=== PATIENT | male | born 1975 | race Caucasian/White ===

== ENCOUNTER 2018-03-01 19:47 | Observation (INO) | payer BC ==
--- NOTE | 2018-03-01 19:55 | PDOC ---
Rapid Medical Evaluation Chief Complaint: Respiratory Time Seen by Provider: 03/01/18 19:52 Medical Evaluation: 03/01/18 19:54 I have performed a brief in person evaluation of this patient. This patient presents with a CC of: SOB Pt is a 42 Yo male who states that he has a sharp pain upon inspiration and his PCP told him to come to the ED because his D dimer was elevated. No hx of blood clots PE: Skin: Clear Lungs: Clear Heart: RRR Abd: No pain MS: Moves all extremities without difficulty. Neuro: Alert and oriented Psych: Appropriate affect I have ordered the following: Basic labs The patient will proceed to the ED for further evaluation. Discharge Disposition - Diagnosis Respiratory abnormalities - Referrals Referrals: Zafar John MD [Primary Care Provider] - - Patient Instructions - Post Discharge Activity
[2018-03-01 19:56] VITALS: BMI 34.8
--- NOTE | 2018-03-01 20:59 | PDOC ---
History of Present Illness <Pati Fischer - Last Filed: 03/02/18 00:11> - History of Present Illness Initial Comments: 03/01/18 21:11 The patient is a 42 year old male, with a significant past medical history of HLD, GERD, and hypokalemia, who presents to the emergency department with, 3 days of right upper quadrant and R lower chest pain with elevated d-dimer results. As per patient, for the past 3 days after eating a fatty meal he began to experience right upper quadrant pain (just below the right breast) radiating around to his back (not straight back). He endorses the pain to worsen when laying flat and with deep inspiration. Patient denies any alleviating factors. The patient went to urgent care today and his blood work done depicted an elevated d-dimer of 0.79 (normal range < 0.5). No recent travel or immobility. No hormone use. Pt reports sister from , unknown if provoked or not. He denies any recent fevers, chills, headache or dizziness. He denies any recent nausea, vomit, diarrhea or constipation. He denies any recent palpitations or shortness of breath. He denies any recent dysuria, frequency, urgency or hematuria. Allergies: NKDA Past surgical history: None reported. Social History: Smoker (10 cigarettes per day). Primary Care Physician: Dr. John <Kishan Call - Last Filed: 03/02/18 00:27> - General Chief Complaint: Respiratory Stated Complaint: BLOOD CLOT IN LUNGS Time Seen by Provider: 03/01/18 19:52 Past History <Pati Fischer - Last Filed: 03/02/18 00:11> - Past Medical History COPD: No GI Disorders: Yes (REFLUX) Hypercholesterolemia: Yes - Suicide/Smoking/Psychosocial Hx Smoking History: Current every day smoker Number of Cigarettes Smoked Daily: 10 Information on smoking cessation initiated: No <Kishan Call - Last Filed: 03/02/18 00:27> - Past Medical History Allergies/Adverse Reactions: Allergies Allergy/AdvReac Type Severity Reaction Status Date / Time No Known Allergies Allergy Verified 03/01/18 19:55 Review of Systems - Review of Systems Comments:: 03/01/18 21:12 GENERAL/CONSTITUTIONAL: No fever or chills. No weakness. HEAD, EYES, EARS, NOSE AND THROAT: No change in vision. No ear pain or discharge. No sore throat. GASTROINTESTINAL: RUQ pain. No nausea, vomiting, diarrhea or constipation. GENITOURINARY: No dysuria, frequency, or change in urination. CARDIOVASCULAR: Right sided chest pain. No shortness of breath. RESPIRATORY: No cough, wheezing, or hemoptysis. MUSCULOSKELETAL: No joint or muscle swelling or pain. No neck or back pain. SKIN: No rash NEUROLOGIC: No headache, vertigo, loss of consciousness, or change in strength/ sensation. ENDOCRINE: No increased thirst. No abnormal weight change. HEMATOLOGIC/LYMPHATIC: No anemia, easy bleeding, or history of blood clots. ALLERGIC/IMMUNOLOGIC: No hives or skin allergy. <Kishan Call - Last Filed: 03/02/18 00:27> *Physical Exam - Vital Signs Last Vital Signs Temp Pulse Resp BP Pulse Ox 106 H 18 150/98 98 03/01/18 19:51 03/01/18 19:51 03/01/18 19:51 03/01/18 19:51 <Pati Fischer - Last Filed: 03/02/18 00:11> - Vital Signs Last Vital Signs Temp Pulse Resp BP Pulse Ox 106 H 18 150/98 98 03/01/18 19:51 03/01/18 19:51 03/01/18 19:51 03/01/18 19:51 - Physical Exam Comments: 03/01/18 21:12 GENERAL: Awake, alert, and fully oriented, in no acute distress HEAD: No signs of trauma EYES: PERRLA, EOMI, sclera anicteric, conjunctiva clear ENT: Nares patent, oropharynx clear without exudates. Moist mucosa NECK: Normal ROM, supple LUNGS: Breath sounds equal, clear to auscultation bilaterally. No wheezes, and no crackles HEART: Tachycardic but regular. no murmurs, rubs or gallops ABDOMEN: Soft, +RUQ ttp, normoactive bowel sounds. No guarding, no rebound. No masses. No CVAT. EXTREMITIES: Normal range of motion, no edema. No erythema, or tenderness BACK: No midline spinal tenderness in cervical/thoracic/lumbar region NEUROLOGICAL: Normal speech, cranial nerves intact, negative pronator drift, 5/ 5 strength in all 4 extremities, normal sensation to light touch in all 4 extremities, normal cerebellar exam, normal gait SKIN: Warm, Dry, normal turgor, no rashes or lesions noted. <Kishan Call - Last Filed: 03/02/18 00:27> ED Treatment Course - LABORATORY CBC & Chemistry Diagram: 03/01/18 21:05 03/01/18 21:05 - ADDITIONAL ORDERS Additional order review: Laboratory Results 03/01/18 03/01/18 21:05 21:05 PT with INR 12.60 INR 1.07 PTT (Actin FS) 27.7 Sodium 141 Potassium 4.8 Chloride 107 Carbon Dioxide 25 Anion Gap 10 BUN 16 Creatinine 0.8 Creat Clearance w eGFR > 60 Random Glucose 109 H Calcium 8.8 Total Bilirubin 0.5 AST 47 H ALT 56 Alkaline Phosphatase 67 Troponin I < 0.02 B-Natriuretic Peptide 26.2 Total Protein 7.8 Albumin 3.8 Lipase 149 03/01/18 21:05 RBC 4.77 MCV 91.4 MCHC 34.9 RDW 13.7 MPV 8.1 Neutrophils % 62.2 Lymphocytes % 27.5 Monocytes % 7.8 Eosinophils % 1.7 Basophils % 0.8 - Medications Given in the ED: ED Medications Discontinued Medications Generic Name Dose Route Start Last Admin Trade Name Carl PRN Reason Stop Dose Admin Acetaminophen 1,000 mg 03/01/18 21:00 03/01/18 21:02 Ofirmev Injection - IVPB 03/01/18 21:01 1,000 mg ONCE ONE Administration <Pati Fischer - Last Filed: 03/02/18 00:11> - LABORATORY CBC & Chemistry Diagram: 03/01/18 21:05 03/01/18 21:05 - RADIOLOGY Radiology Studies Ordered: Category Date Time Status CHEST CTA [CT] Stat CT Scan 03/01/18 20:58 Ordered ABDOMEN US -LIMITED [US] Stat Ultrasound 03/01/18 20:58 Ordered <Kishan Call - Last Filed: 03/02/18 00:27> Medical Decision Making - Medical Decision Making 03/02/18 00:11 Person to notify (): [phone] <Pati Fischer - Last Filed: 03/02/18 00:11> - Medical Decision Making 03/01/18 21:03 42yo M hx HL, GERD presents to the ED with 3 days of progressive R lower chest/ RUQ pleuritic pain. Vitals with tachycardia to 107. Labs done at with elevated dimer. DDx includes PE vs cholecystitis. Less likely PNA vs ACS vs MSk pain vs pancreatitis. Plan -labs -XR -monitor -RUQ US -CTA chest -pain control -reassess 03/02/18 00:15 US negative for cholecystitis CTA very limited, can only r/o large central PE On re-eval, pt with persistent R sided pleuritic CP It's certainly possible pt has PE At this point, in light of family hx (sister with from PE despite coumadin therapy) and persistent pain, will order LE US, rpt trop, treat with lovenox 1mg/kg and admit to observation Hospitalist paged for admission 03/02/18 00:26 Case discussed with SPOT WORKER Zakia, pt admitted to tele obs Case discussed in detail with admitting physician including history, physical exam and ancillary studies. Admitting physician has assumed care for the patient, will follow all pending diagnostics and will complete the evaluation and treatment. <Kishan Call - Last Filed: 03/02/18 00:27> *DC/Admit/Observation/Transfer - Attestations Scribe Attestion: 03/02/18 00:12 Documentation prepared by Pati Fischer, acting as director of medical services for Kishan Call MD. <Pati Fischer - Last Filed: 03/02/18 00:11> - Discharge Dispostion Decision to Admit order: Yes - Attestations Physician Attestion: 03/02/18 00:27 I, Dr. Kishan Call MD, attest that this document has been prepared under my direction and personally reviewed by me in its entirety. I further attest, that it accurately reflects all work, treatment, procedures and medical decision -making performed by me. <Kishan Call - Last Filed: 03/02/18 00:27> Diagnosis at time of Disposition: Respiratory abnormalities, Chest pain, Family history of pulmonary embolism - Discharge Dispostion Condition at time of disposition: Stable - Referrals Referrals: Zafar John MD [Primary Care Provider] - - Patient Instructions - Post Discharge Activity
[2018-03-01] MEDS ORDERED: ACETAMINOPHEN 1000 MG/100 ML VIAL (NON FORMULARY) IVPB ONE (21:00)
[2018-03-01 21:13] LABS: BASO % 0.8 % (0-2.0); EOS % 1.7 % (0-4.5); HEMATOCRIT 43.6 % (35.4-49); HEMOGLOBIN 15.2 GM/dL (11.7-16.9); LYMPH % 27.5 % (8-40); MCH 31.9 pg (25.7-33.7); MCHC 34.9 g/dl (32.0-35.9); MEAN CELL VOLUME 91.4 fl (80-96); MEAN PLT VOLUME 8.1 fl (7.5-11.1); MONO % 7.8 % (3.8-10.2); NEUT % 62.2 % (42.8-82.8); PLATELET COUNT 237 K/MM3 (134-434); RBC 4.77 M/mm3 (4.00-5.60); RDW 13.7 % (11.9-15.9); WHITE BLOOD COUNT 8.3 K/mm3 (4.0-10.0)
[2018-03-01 21:33] LABS: INR 1.07 (0.83-1.09); PROTHROMBIN TIME (PATIENT) 12.6 SEC (9.7-13.0)
[2018-03-01 21:36] LABS: ACTIVATED PTT 27.7 SECONDS (25.2-36.5)
[2018-03-01 21:51] LABS: ALBUMIN 3.8 g/dl (3.4-5.0); ALK PHOS 67 U/L (45-117); BILIRUBIN,TOTAL 0.5 mg/dL (0.2-1); BLOOD UREA NITROGEN 16 mg/dL (7-18); CALCIUM 8.8 mg/dL (8.5-10.1); CHLORIDE 107 mmol/L (98-107); CO2 25 mmol/L (21-32); CREATININE 0.8 mg/dL (0.55-1.3); GLUCOSE,RANDOM 109 mg/dL (74-106); LIPASE 149 U/L (73-393); N-TERMINAL BNP 26.2 pg/ml (5-125); SGPT/ALT 56 U/L (13-61); SODIUM 141 mmol/L (136-145); TOT PROT 7.8 g/dl (6.4-8.2)
[2018-03-01 21:52] LABS: ANION GAP 10 MMOL/L (8-16); POTASSIUM 4.8 mmol/L (3.5-5.1); SGOT/AST 47 U/L (15-37)
[2018-03-02] MEDS ORDERED: ENOXAPARIN NA (PORCINE) 120 MG/0.8 ML DISP.SYRIN SQ SCH (00:30)
--- NOTE | 2018-03-02 03:21 | HP ---
CHIEF COMPLAINT: chest pain PCP: Raymon HISTORY OF PRESENT ILLNESS: This is a 42 year old male with a past medical history of psoriasis, HLD, GERD who presented to the ED with RUQ, right lower chest and right mid back pain x 3 days. Pt was seen at urgent care who did a d-dimer; which was elevated at 0.78. He is concerned because his sister of a PE at the age of 38. ER course was notable for: (1) CT scan without PE in main pulmonary artery and bifurcation but distal pulmonary embolus could not be excluded (2) doppler neg B/L (3) trop neg Recent Travel: [place] in November PAST MEDICAL HISTORY: HLD, GERD, psoriasis PAST SURGICAL HISTORY: pt denies Social History: Smokin/2 ppd x 25y Alcohol: once per week Drugs: pt denies Family History: sister age 38, pulmonary embolism, h/o DM brother alive and well mother alive with HLD, s/p BrCA father alive with CAD (stents), HLD, s/p lymphoma Allergies No Known Allergies Allergy (Verified 03/01/18 19:55) HOME MEDICATIONS: "something for my GERD and something for my cholesterol" he also reports he has been taking ibuprofen for back pain REVIEW OF SYSTEMS CONSTITUTIONAL: Absent: fever, chills, diaphoresis, generalized weakness, malaise, loss of appetite, weight change HEENT: Absent: rhinorrhea, nasal congestion, throat pain, throat swelling, difficulty swallowing, mouth swelling, ear pain, eye pain, visual changes CARDIOVASCULAR: Present: right lower chest pain Absent: syncope, palpitations, irregular heart rate, lightheadedness, peripheral edema RESPIRATORY: Absent: cough, shortness of breath, dyspnea with exertion, orthopnea, wheezing, stridor, hemoptysis GASTROINTESTINAL: Present: right upper abdominal pain Absent: , abdominal distension, nausea, vomiting, diarrhea, constipation, melena , hematochezia GENITOURINARY: Present: right flank pain Absent: dysuria, frequency, urgency, hesitancy, hematuria, genital pain MUSCULOSKELETAL: Absent: myalgia, arthralgia, joint swelling, back pain, neck pain SKIN: Absent: rash, itching, pallor HEMATOLOGIC/IMMUNOLOGIC: Absent: easy bleeding, easy bruising, lymphadenopathy, frequent infections ENDOCRINE: Absent: unexplained weight gain, unexplained weight loss, heat intolerance, cold intolerance NEUROLOGIC: Absent: headache, focal weakness or paresthesias, dizziness, unsteady gait, seizure, mental status changes, bladder or bowel incontinence PSYCHIATRIC: Absent: anxiety, depression, suicidal or homicidal ideation, hallucinations. PHYSICAL EXAMINATION Vital Signs - 24 hr 3 03/01/18 19:51 Pulse Rate 106 H Respiratory 18 Rate Blood Pressure 150/98 O2 Sat by Pulse 98 Oximetry (%) GENERAL: Awake, alert, and fully oriented, in no acute distress. HEAD: Normal with no signs of trauma. EYES: Pupils equal, round and reactive to light, extraocular movements intact, sclera anicteric, conjunctiva clear. No lid lag. EARS, NOSE, THROAT: Ears normal, nares patent, oropharynx clear without exudates. Moist mucous membranes. NECK: Normal range of motion, supple without lymphadenopathy, JVD, or masses. LUNGS: Breath sounds equal, clear to auscultation bilaterally. No wheezes, and no crackles. No accessory muscle use. HEART: Regular rate and rhythm, normal S1 and S2 without murmur, rub or gallop. ABDOMEN: Soft, nontender, not distended, normoactive bowel sounds, no guarding, no rebound, no masses. No hepatomegaly or splenomegaly. MUSCULOSKELETAL: Normal range of motion at all joints. No bony deformities or tenderness. No CVA tenderness. UPPER EXTREMITIES: 2+ pulses, warm, well-perfused. No cyanosis. No clubbing. No peripheral edema. LOWER EXTREMITIES: 2+ pulses, warm, well-perfused. No calf tenderness. No peripheral edema. NEUROLOGICAL: Cranial nerves II-XII intact. Normal speech. Normal gait. PSYCHIATRIC: Cooperative. Good eye contact. Appropriate mood and affect. SKIN: Warm, dry, normal turgor, no rashes or lesions noted, normal capillary refill. small psoriatic plaques noted on patients arms Laboratory Results - last 24 hr 3 03/01/18 03/01/18 03/01/18 03/01/18 21:05 21:05 21:05 00:19 WBC 8.3 RBC 4.77 Hgb 15.2 Hct 43.6 MCV 91.4 MCH 31.9 MCHC 34.9 RDW 13.7 Plt Count 237 MPV 8.1 Absolute Neuts (auto) 5.2 Neutrophils % 62.2 Lymphocytes % 27.5 Monocytes % 7.8 Eosinophils % 1.7 Basophils % 0.8 Nucleated RBC % 0 PT with INR 12.60 INR 1.07 PTT (Actin FS) 27.7 Sodium 141 Potassium 4.8 Chloride 107 Carbon Dioxide 25 Anion Gap 10 BUN 16 Creatinine 0.8 Creat Clearance w eGFR > 60 Random Glucose 109 H Calcium 8.8 Total Bilirubin 0.5 AST 47 H ALT 56 Alkaline Phosphatase 67 Troponin I < 0.02 < 0.02 B-Natriuretic Peptide 26.2 Total Protein 7.8 Albumin 3.8 Lipase [address] chest with contrast IMPRESSION: Limited examination due to poor enhancement of the pulmonary arteries. There is no gross filling defect/pulmonary embolus in the main pulmonary artery and its bifurcation, bilaterally. Opacification of the distal pulmonary artery branches are essentially nondiagnostic. No enlarged mediastinal or hilar lymph nodes are identified. Subsegmental atelectasis/ scarring in the left lower lobe extending from the left infrahilar level down to just above the level of the left hemidiaphragm. Follow-up CT scan of the chest in a couple of weeks is needed for better visualization and evaluation. Reported By: Joe Sanchez MD 03/01/18 2350 DUPLEX VASCULAR US-2 LEGS THIS IS A PRELIMINARY REPORT FROM [facility] FINDINGS: There is no DVT of the right or left lower extremity. IMPRESSION: No DVT. THIS DOCUMENT HAS BEEN ELECTRONICALLY SIGNED Travis Melvin MD 03/02/2018 00:46 EST ASSESSMENT/PLAN: 42yM with PMH HLD, GERD, psoriasis presented to the ED with chest, abdominal and flank pain. Right lower chest pain - trop neg x 2 - no PE in main pulmonary artery or bifurcations - doppler neg for DVT B/L - given family history will observe overnight, pulm consult in AM for possible VQ scan to r/o PE in distal branches - lovenox 110mg given in ED to cover pt for night GERD - pantoprazole 20mg daily HLD - cont home med, PCP to follow in AM DVT PPX - given full dose lovenox FEN - tolerating po - BMP in am - regular diet as tolerated Dispo: Pt currently requires further observation for management of his emergent condition. Visit type - Emergency Visit Emergency Visit: Yes ED Registration Date: 03/01/18 Care time: The patient presented to the Emergency Department on the above date and was hospitalized for further evaluation of their emergent condition. - New Patient This patient is new to me today: Yes Date on this admission: 03/02/18 - Critical Care Critical Care patient: No
[2018-03-02 06:15] LABS: BASO % 0.5 % (0-2.0); EOS % 2.2 % (0-4.5); HEMOGLOBIN 14.2 GM/dL (11.7-16.9); LYMPH % 34.9 % (8-40); MCH 30.7 pg (25.7-33.7); MCHC 33.9 g/dl (32.0-35.9); MEAN CELL VOLUME 90.6 fl (80-96); MEAN PLT VOLUME 7.3 fl (7.5-11.1); NEUT % 55.4 % (42.8-82.8); PLATELET COUNT 214 K/MM3 (134-434); RBC 4.63 M/mm3 (4.00-5.60); RDW 13.6 % (11.9-15.9); WHITE BLOOD COUNT 7.7 K/mm3 (4.0-10.0)
[2018-03-02 07:26] LABS: ANION GAP 10 MMOL/L (8-16); BLOOD UREA NITROGEN 14 mg/dL (7-18); CALCIUM 8.6 mg/dL (8.5-10.1); CHLORIDE 104 mmol/L (98-107); CO2 24 mmol/L (21-32); CREATININE 0.9 mg/dL (0.55-1.3); GLUCOSE,RANDOM 103 mg/dL (74-106); MAGNESIUM 2.4 mg/dL (1.8-2.4); PHOSPHOROUS 3.9 mg/dL (2.5-4.9); POTASSIUM 4.2 mmol/L (3.5-5.1); SODIUM 138 mmol/L (136-145)
--- NOTE | 2018-03-02 09:55 | EKG ---
Test Reason : Blood Pressure : / mmHG Vent. Rate : 080 BPM Atrial Rate : 080 BPM P-R Int : 158 ms QRS Dur : 098 ms QT Int : 384 ms P-R-T Axes : 054 054 049 degrees QTc Int : 442 ms NORMAL SINUS RHYTHM NORMAL ECG NO PREVIOUS ECGS AVAILABLE Confirmed by QUINN HOYT, JAE ([id number]) on 03/02/2018 9:55:13 AM Referred By: Confirmed By:JAE BALL MD
[2018-03-02] MEDS ORDERED: ACETAMINOPHEN 325 MG TABLET (FP) PO PRN (15:28)
--- NOTE | 2018-03-02 15:33 | PN ---
Progress Note, Physician Chief Complaint: Chest Pain Elevated D dimer History of Present Illness: NAD no complaints of chest pain any more Chest pain past 3 days before arrival to ED only upon deep inspiration. Denies SOB, dizziness, light headedness or any other associated symptoms. - Current Medication List Current Medications: Active Medications Acetaminophen (Tylenol -) 650 mg PO Q4H PRN PRN Reason: PAIN OR FEVER - Objective Vital Signs: Vital Signs Temperature 97.9 F 03/02/18 11:04 Pulse Rate 57 L 03/02/18 11:04 Respiratory Rate 03/02/18 11:04 Blood Pressure 117/80 03/02/18 11:04 O2 Sat by Pulse Oximetry (%) 98 03/02/18 11:04 Constitutional: Yes: Well Nourished, No Distress, Calm Cardiovascular: Yes: Regular Rate and Rhythm Respiratory: Yes: Regular Gastrointestinal: Yes: Normal Bowel Sounds, Soft, Abdomen, Obese Musculoskeletal: Yes: WNL Extremities: Yes: WNL Edema: No Peripheral Pulses WNL: Yes Neurological: Yes: Alert, Oriented Psychiatric: Yes: Alert, Oriented Labs: CBC, BMP 03/02/18 06:00 03/02/18 06:00 INR, PTT INR 1.07 (0.83-1.09) 03/01/18 21:05 Problem List - Problems (1) Chest pain Assessment/Plan: -Trops x 3 negative -EKG-NSR -elevated d dimer -CTA-main pulmonary artery negative for PE, small vessels could not be excluded -Repeat CTA in AM -Levaquin 500 mg IV daily for possible pneumonia -Pulmonary consult -U/S abd and lower extremity doppler negative -likely musculoskeletal Code(s): R07.9 - CHEST PAIN, UNSPECIFIED (2) Family history of pulmonary embolism Code(s): Z82.49 - FAMILY HX OF ISCHEM HEART DIS AND OTH DIS OF THE CIRC SYS Assessment/Plan see problem list DVT prophylaxis
--- NOTE | 2018-03-02 18:14 | PN ---
Progress Note (short form) - Note Progress Note: PULMONARY CONSULTATION DICTATED 03/02/18 IMP CHEST PAIN LIKLEY MUSCULOSKELETAL,CANNOT EXCLUDE PE ELEVATED D-DIMER NON-SPECIFIC ? PNEUMONIA PLEURISY HLD GERD LIKELY OSAS PLAN ANALGESICS CHEST CTA ESR ABX AC SLEEP STUDIES OUTPATIENT DR GRAY Problem List - Problems (1) Elevated d-dimer Code(s): R79.89 - OTHER SPECIFIED ABNORMAL FINDINGS OF BLOOD CHEMISTRY (2) Chest pain Code(s): R07.9 - CHEST PAIN, UNSPECIFIED (3) Family history of pulmonary embolism Code(s): Z82.49 - FAMILY HX OF ISCHEM HEART DIS AND OTH DIS OF THE CIRC SYS (4) GERD (gastroesophageal reflux disease) Code(s): K21.9 - GASTRO-ESOPHAGEAL REFLUX DISEASE WITHOUT ESOPHAGITIS
--- NOTE | 2018-03-02 19:43 | CONS ---
DATE OF CONSULTATION: 03/02/2018 REFERRING PHYSICIAN: Riky Ennis M.D. HISTORY OF PRESENT ILLNESS: The patient is a 42-year-old white male with a past medical history of GERD, hyperlipidemia, hyperkalemia, obesity, smoker 1/2 pack per day since age 13, admitted to [facility], [place] with complaint of 3-day history of right sided chest pain, pleuritic in nature as well as right upper quadrant discomfort. Patient went to an urgent care center, apparently had a D-dimer noted was elevated 0.79. He presented to the emergency room with the above. Patient states that he has a sister who at the age of 38 from DVT and pulmonary embolism. Patient denies any history of , shortness of breath, nausea, cough, hemoptysis. Denies any fever, chills, weight loss, or night sweats. Denies any recent travel. Denies any history of DVT or PE in the past. He does state he has been relatively sedentary for the past year or so due to back injury. There is no history of recent travel. PAST MEDICAL HISTORY: Includes hypertension, hyperlipidemia, obesity. Patient underwent a CTA of the chest which revealed poor study secondary to poor enhancement of pulmonary arteries. There was some subsegmental atelectatic changes with scarring in the left lower lobe, possible infiltrate as well as a few bibasilar atelectasis on the right. REVIEW OF SYSTEMS: No orthopnea, no PND. Positive right-sided pleuritic chest pain. No fevers. No chills. No cough. No hemoptysis. Mild right upper quadrant pain. No lower extremity edema. CURRENT MEDICATIONS: Include Tylenol, Levaquin. PHYSICAL EXAMINATION: GENERAL: The patient is an obese male, wide awake, alert, in no acute distress. He is afebrile. VITAL SIGNS: Blood pressure 120/61, respiratory rate 18, O2 saturation 96% on room air. He is afebrile. HEENT: Normocephalic, atraumatic. NECK: Supple. HEART: Regular S1, S2. CHEST: Clear. ABDOMEN: Soft, bowel sounds positive. EXTREMITIES: No cyanosis, edema. LABORATORY: WBC 7.7, hemoglobin 14.2, hematocrit 42, platelet count of 214,000, INR is 1.07, D-dimer is 821. BUN 14, creatinine 0.9. Chest CT as noted earlier. IMPRESSION: 1. Chest pain, doubt pulmonary embolism. Cannot completely exclude. Rule out possible pleurisy. Rule out possible infectious process. 2. Hyperlipidemia. 3. Obesity. PLAN: antibiotics. Obtain followup chest CTA. Analgesics. Obtain sedimentation rate. SHWETA GRAY M.D. MAURA/[id number]
[2018-03-03] MEDS ORDERED: ENOXAPARIN NA (PORCINE) 40 MG/0.4 ML DISP.SYRIN SQ SCH (10:00)
--- NOTE | 2018-03-03 11:21 | PN ---
Progress Note, Physician Chief Complaint: Chest Pain Elevated D dimer History of Present Illness: NAD no complaints of chest pain any more Chest pain past 3 days before arrival to ED only upon deep inspiration. Denies SOB, dizziness, light headedness or any other associated symptoms. Repeat CTA pending - Current Medication List Current Medications: Active Medications Acetaminophen (Tylenol -) 650 mg PO Q4H PRN PRN Reason: PAIN OR FEVER Enoxaparin Sodium (Lovenox -) 40 mg SQ DAILY CLEOPATRA Last Admin: 03/03/18 11:18 Dose: 40 mg Levofloxacin (Levaquin 500 Mg Premixed Ivpb -) 500 mg in 100 mls @ 100 mls/hr IVPB DAILY CLEOPATRA; Protocol Last Admin: 03/03/18 11:17 Dose: 100 mls/hr - Objective Vital Signs: Vital Signs Temperature 97.9 F 03/03/18 09:22 Pulse Rate 79 03/03/18 09:22 Respiratory Rate 19 03/03/18 09:22 Blood Pressure 111/57 L 03/03/18 09:22 O2 Sat by Pulse Oximetry (%) 99 03/02/18 21:00 Constitutional: Yes: Well Nourished, No Distress, Calm Cardiovascular: Yes: Regular Rate and Rhythm Respiratory: Yes: Regular Gastrointestinal: Yes: Normal Bowel Sounds, Soft, Abdomen, Obese Genitourinary: Yes: WNL Musculoskeletal: Yes: WNL Extremities: Yes: WNL Edema: No Peripheral Pulses WNL: Yes Neurological: Yes: Alert, Oriented Psychiatric: Yes: Alert, Oriented Labs: CBC, BMP 03/02/18 06:00 03/02/18 06:00 INR, PTT INR 1.07 (0.83-1.09) 03/01/18 21:05 Problem List - Problems (1) Chest pain Assessment/Plan: -Trops x 3 negative -EKG-NSR -elevated d dimer -CTA-main pulmonary artery negative for PE, small vessels could not be excluded -If Repeat CTA negative d/c home -Levaquin 500 mg IV daily for possible pneumonia -Pulmonary consult -U/S abd and lower extremity doppler negative -likely musculoskeletal Code(s): R07.9 - CHEST PAIN, UNSPECIFIED (2) Family history of pulmonary embolism Code(s): Z82.49 - FAMILY HX OF ISCHEM HEART DIS AND OTH DIS OF THE CIRC SYS Assessment/Plan see problem list DVT prophylaxis
--- NOTE | 2018-03-03 13:04 | CONSULT ---
Consultation: REQUESTING PROVIDER: Dr Ennis CONSULT REQUEST: We have been asked to medically evaluate this patient for chest pain. HISTORY OF PRESENT ILLNESS: The patient is a 42 year old male with a PMH of psoriasis, hypercholesterolemia , GERD that was admitted to the hospital for chest pain. It started 5 days ago, on right side of his chest, radiation to the back, dull in nature, 7/10, constant worse with inspiration and expiration. The patient decided to go to Urgent Care two days ago where he was found to have elevated D-dimer level to 0.79 and was recommended to go to ED. Cardiology was consulted for evaluation of chest pain, r/o ACS/PE. The patient denies chest pain, palpitations or SOB today. He has never had chest pain like that in the past. He denies nausea, vomiting, dizziness, lightheadedness. He also denies cough, fever, chills, recent travel, sick contacts. PSH:none SH: 1/2 PPD x 25 years, no alcohol/drugs FH: Sister, due to PE at age of 38, on coumadin, DM, father: lymphoma, CAD, s/p stent mother: breast Ca REVIEW OF SYSTEMS: CONSTITUTIONAL: Absent: fever, chills, diaphoresis, generalized weakness HEENT: Absent: rhinorrhea, nasal congestion, throat pain CARDIOVASCULAR: Absent: chest pain, syncope, palpitations, irregular heart rate, lightheadedness , peripheral edema RESPIRATORY: Absent: cough, shortness of breath, dyspnea with exertion, orthopnea, wheezing GASTROINTESTINAL: Absent: abdominal pain, abdominal distension, nausea, vomiting, diarrhea, constipation GENITOURINARY: Absent: dysuria, frequency, urgency MUSCULOSKELETAL: Absent: myalgia, arthralgia NEUROLOGIC: Absent: headache, focal weakness or paresthesias, dizziness, unsteady gait, seizure, mental status changes PSYCHIATRIC: Absent: anxiety, depression PHYSICAL EXAMINATION Vital Signs - 24 hr 03/02/18 03/02/18 03/02/18 15:47 17:30 18:14 Temperature 98.3 F 98.0 F Pulse Rate 88 Pulse Rate [ 93 H 81 Left Radial] Respiratory 18 16 20 Rate Blood Pressure 112/64 Blood Pressure 119/73 120/61 [Left Arm] O2 Sat by Pulse 96 96 Oximetry (%) 03/02/18 03/02/18 03/02/18 18:35 21:00 22:00 Temperature 98.2 F Pulse Rate 86 Pulse Rate [ Left Radial] Respiratory 20 20 Rate Blood Pressure 132/75 Blood Pressure [Left Arm] O2 Sat by Pulse 98 99 Oximetry (%) 03/03/18 03/03/18 03/03/18 02:00 06:00 09:22 Temperature 98.1 F 98.1 F 97.9 F Pulse Rate 83 81 79 Pulse Rate [ Left Radial] Respiratory 18 18 19 Rate Blood Pressure 119/79 115/81 111/57 L Blood Pressure [Left Arm] O2 Sat by Pulse Oximetry (%) GENERAL: Awake, alert, and fully oriented, in no acute distress. HEAD: Normal with no signs of trauma. EYES: Extraocular movements intact, sclera anicteric, conjunctiva clear. EARS, NOSE, THROAT: Moist mucous membranes. NECK: Normal range of motion, supple without lymphadenopathy, JVD. LUNGS: Breath sounds equal, clear to auscultation bilaterally. No wheezes, and no crackles. No accessory muscle use. HEART: Regular rate and rhythm, normal S1 and S2 without murmur, rub or gallop. ABDOMEN: Soft, nontender, not distended, normoactive bowel sounds, no guarding, no rebound, no masses. MUSCULOSKELETAL: Normal range of motion at all joints. No bony deformities or tenderness. UPPER EXTREMITIES: No peripheral edema. LOWER EXTREMITIES: 2+ pulses, no peripheral edema. NEUROLOGICAL: Non focal, normal speech. PSYCHIATRIC: Cooperative. Good eye contact. SKIN: Warm, dry, normal turgor, no rashes. Active Medications Generic Name Dose Route Start Last Admin Trade Name Freq PRN Reason Stop Dose Admin Acetaminophen 650 mg 03/02/18 15:28 Tylenol - PO Q4H PRN PAIN OR FEVER Enoxaparin Sodium 40 mg 03/03/18 10:00 03/03/18 11:18 Lovenox - SQ 40 mg DAILY CLEOPATRA Administration Levofloxacin 500 mg in 100 mls @ 100 mls/hr 03/02/18 16:30 03/03/18 11:17 Levaquin 500 Mg Premixed Ivpb - IVPB 100 mls/hr DAILY CLEOPATRA Administration Protocol ASSESSMENT/PLAN: The patient is a 42 year old male with a PMH of psoriasis, hypercholesterolemia , GERD that was admitted to the hospital for chest pain, r/o ACS. Chest pain r/o ACS/PE hypercholesterolemia GERD psoriasis Atypical chest pain r/o ACS/PE: -the pain that the patient experienced is most likely musculoskeletal, less likely ACS/PE -cardiac enzymes normal, no acute EKG changes, -D Dimer 821 in the hospital, non specific, first CTA of the chest negative for PE, f/u repeat CTA today no PE -given Lovenox 110 mg ONCE in ED followed by [address] Lozoya PGY [address] Gunn Dispo: We will continue to follow the patient. Thank you for this consultative opportunity. <DarellRadha - Last Filed: 03/03/18 14:56> Consultation: REQUESTING PROVIDER: Cardiology CONSULT REQUEST: We have been asked to medically evaluate this patient for Chest pain I reviewed with the resident the history testing and plan and agree with her findings except as noted below. 42 M with right upper abdominal discomfort after eating ribs. He had negative cardiac testing and CT chest was normal. His chest pain is non cardiac, possibly musculosskletal or gall bladder related. There is mild transaminitis. No cardiac pathology is noted. Would consider gall bladder imaging if recurrent symptoms are noted. Will see as needed. Vital Signs - 24 hr 03/02/18 03/02/18 03/02/18 15:47 17:30 18:14 Temperature 98.3 F 98.0 F Pulse Rate 88 Pulse Rate [ 93 H 81 Left Radial] Respiratory 18 16 20 Rate Blood Pressure 112/64 Blood Pressure 119/73 120/61 [Left Arm] O2 Sat by Pulse 96 96 Oximetry (%) 03/02/18 03/02/18 03/02/18 18:35 21:00 22:00 Temperature 98.2 F Pulse Rate 86 Pulse Rate [ Left Radial] Respiratory 20 20 Rate Blood Pressure 132/75 Blood Pressure [Left Arm] O2 Sat by Pulse 98 99 Oximetry (%) 03/03/18 03/03/18 03/03/18 02:00 06:00 09:22 Temperature 98.1 F 98.1 F 97.9 F Pulse Rate 83 81 79 Pulse Rate [ Left Radial] Respiratory 18 18 19 Rate Blood Pressure 119/79 115/81 111/57 L Blood Pressure [Left Arm] O2 Sat by Pulse Oximetry (%) 03/03/18 14:00 Temperature 98.5 F Pulse Rate 84 Pulse Rate [ Left Radial] Respiratory 20 Rate Blood Pressure 125/70 Blood Pressure [Left Arm] O2 Sat by Pulse Oximetry (%) <Colton Gunn - Last Filed: 03/03/18 15:14> Problem List - Problems (1) Chest pain Code(s): R07.9 - CHEST PAIN, UNSPECIFIED (2) Elevated d-dimer Code(s): R79.89 - OTHER SPECIFIED ABNORMAL FINDINGS OF BLOOD CHEMISTRY (3) Family history of pulmonary embolism Code(s): Z82.49 - FAMILY HX OF ISCHEM HEART DIS AND OTH DIS OF THE [facility] (4) GERD (gastroesophageal reflux disease) Code(s): K21.9 - GASTRO-ESOPHAGEAL REFLUX DISEASE WITHOUT ESOPHAGITIS <Radha Lozoya - Last Filed: 03/03/18 14:56> Visit type - Emergency Visit Emergency Visit: Yes ED Registration Date: 03/02/18 Care time: The patient presented to the Emergency Department on the above date and was hospitalized for further evaluation of their emergent condition. - New Patient This patient is new to me today: Yes Date on this admission: 03/03/18 - Critical Care Critical Care patient: No <Radha Lozoya - Last Filed: 03/03/18 14:56>
[2018-03-03 14:15] VITALS: BP 125/70; PULSE 84; TEMP 98.5
--- NOTE | 2018-03-03 14:33 | PN ---
Progress Note (short form) - Note Progress Note: PULMONARY Repeat CTA chest without evidence of PE. Denies shortness of breath. Vital Signs Period Temp Pulse Resp BP Sys/Kauffman Pulse Ox Last 24 Hr 97.9 F-98.5 F 79-93 16-20 111-132/57-81 96-99 Gen: NAD at rest Heart: RRR Lung: decreased breath sounds at the bases Abd: soft, nontender Ext: no edema CBC, BMP 03/02/18 06:00 03/02/18 06:00 Active Medications Acetaminophen (Tylenol -) 650 mg PO Q4H PRN PRN Reason: PAIN OR FEVER Enoxaparin Sodium (Lovenox -) 40 mg SQ DAILY CLEOPATRA Last Admin: 03/03/18 11:18 Dose: 40 mg Levofloxacin (Levaquin 500 Mg Premixed Ivpb -) 500 mg in 100 mls @ 100 mls/hr IVPB DAILY CLEOPATRA; Protocol Last Admin: 03/03/18 11:17 Dose: 100 mls/hr A/P Atypical Chest Pain likely Musculoskeletal Elevated D-dimer Hyperlipidemia GERD - pain control - can d/c home from pulmonary standpoint
== END 2018-03-03 18:41 | disposition home or self-care (01) ==
LOC: JER 19:47 → JERBED 03-02 00:27 → J4W 03-02 18:00
PROVIDERS: ADMIT Internal Medicine; ATTEND Family Medicine
PROC: 3E03329 Introduction of Other Anti-infective into Peripheral Vein, Percutaneous Approach (ICD-10-PCS; principal; 2018-03-02)
PROC: 3E033NZ Introduction of Analgesics, Hypnotics, Sedatives into Peripheral Vein, Percutaneous Approach (ICD-10-PCS; 2018-03-02)
PROC: 3E013GC Introduction of Other Therapeutic Substance into Subcutaneous Tissue, Percutaneous Approach (ICD-10-PCS; 2018-03-02)
DX: R07.9 Chest pain, unspecified (principal); E78.5 Hyperlipidemia, unspecified; R79.89 Other specified abnormal findings of blood chemistry; J98.9 Respiratory disorder, unspecified; K21.9 Gastro-esophageal reflux disease without esophagitis; F17.210 Nicotine dependence, cigarettes, uncomplicated; Z83.6 Family history of other diseases of the respiratory system; Z82.49 Family history of ischemic heart disease and other diseases of the circulatory system; E66.9 Obesity, unspecified; Z68.34 Body mass index [BMI] 34.0-34.9, adult
CPT/HCPCS: 36415; 71275-TC; 76705-TC; 80048; 80053; 82550; 82553; 83690; 83735; 83880; 84100; 84484; 85025; 85379; 85610; 85730; 93005; 93010; 93970-TC; 99285-25; G0378; J0131

== ENCOUNTER 2019-04-17 08:40 | Day surgery (SDC) | payer BC ==
[2019-04-14 12:58] VITALS: BMI 30.7
[2019-04-17 08:59] VITALS: TEMP 98.2
[2019-04-17] MEDS ORDERED: ACETAMINOPHEN 325 MG TABLET (FP) PO PRN (09:20)
[2019-04-17] MEDS ORDERED: oxyCODONE HCL 5 MG TABLET PO PRN ×2 (09:20)
[2019-04-17] MEDS ORDERED: ONDANSETRON 4 MG/2 ML VIAL IVPUSH PRN (09:20)
[2019-04-17] MEDS ORDERED: LACTATED RINGERS SOLUTION 1,000 ML IV SCH (09:30)
[2019-04-17] MEDS ORDERED: PROPOFOL 20 ML ONE ×2 (09:31)
[2019-04-17] MEDS ORDERED: MIDAZOLAM HCL 2 MG/2 ML SINGLE DOSE VIAL ONE (09:31)
[2019-04-17] MEDS ORDERED: LIDOCAINE HCL 1%, 10 MG/ML (20ML VIAL) ONE (10:22)
[2019-04-17] MEDS ORDERED: BUPIVACAINE HCL/PF 0.5% (5 MG/ML) 30 ML VIAL IJ ONE ×4 (10:22→10:54)
[2019-04-17] MEDS ORDERED: DEXAMETHASONE SOD PHOSPHATE 4 MG/1 ML VIAL ONE (10:22)
[2019-04-17] MEDS ORDERED: LIDOCAINE HCL 2% (20ML MULTI-DOSE VIAL) ONE (10:33)
[2019-04-17] MEDS ORDERED: LIDOCAINE HCL 2% (50ML VIAL) SQ ONE ×3 (10:54)
[2019-04-17] MEDS ORDERED: SUCCINYLCHOLINE CHLORIDE 200 MG/10 ML SYRINGE ONE (11:03)
[2019-04-17] MEDS ORDERED: DEXAMETHASONE SOD PHOSPHATE 4 MG/1 ML VIAL NR ONE (11:21)
--- NOTE | 2019-04-17 11:32 | OP ---
Operative Note - Note: Operative Date: 04/17/19 Pre-Operative Diagnosis: Left 5th hammertoe Operation: Arthroplasty left 5th toe, tenotomy, capsulotomy Surgeon: Jessenia Vides Line Erector Apprentice: Deshawn Zapata Anesthesiologist/HEAD OF MARKETING ADOMETRY: Eleonora Landa Anesthesia: MAC Specimens Removed: Skin and bone Estimated Blood Loss (mls): 1 Operative Report Dictated: No
[2019-04-17 12:03] VITALS: PULSE 78
[2019-04-17 12:23] VITALS: BP 110/81
--- NOTE | 2019-04-18 14:18 | PATH ---
Surgical Pathology Report Patient Name: JANES HENRIQUEZ [facility]. Rec. #: [id number] /Age/Gender: 1975 (Age: 43) / M Account: [id number] Location: [facility] SURGICAL Taken: 04/17/2019 Received: 04/17/2019 Reported: 04/18/2019 Physicians: Jessenia Vides DPM Specimen(s) Received LEFT FOOT 5TH TOE SKIN AND BONE Clinical History Hammertoe left foot, exostosis Final Diagnosis SKIN AND BONE, FIFTH TOE, FOOT, LEFT, ARTHROPLASTY: BONE WITH FATTY MARROW. SKIN WITHOUT SIGNIFICANT PATHOLOGIC FINDINGS. Electronically Signed Rae Warner M.D. Gross Description Received in formalin labeled "left foot fifth toe skin and bone," is a 1.2 x 0.9 x 0.6 cm min-yellow portion of bone as well as a 3.2 x 0.4 cm min portion of skin. Hand Therapist sections are submitted in one cassette, following decalcification. /04/17/[address] [facility]04/17/2019
== END 2019-04-17 13:59 | disposition home or self-care (01) ==
LOC: JASU-SURG 08:40
PROVIDERS: ATTEND Podiatrist Foot Surgery
PROC: 0SRQ0JZ Replacement of Left Toe Phalangeal Joint with Synthetic Substitute, Open Approach (ICD-10-PCS; principal; 2019-04-17 10:30)
DX: M20.42 Other hammer toe(s) (acquired), left foot (principal)
CPT/HCPCS: 73630-TC-LT; 88304-TC; 88311-TC